=== PATIENT | female | born 1935 | race Caucasian/White ===

== ENCOUNTER 2017-08-04 19:56 | Emergency (ER) | payer MEDICARE, OTHER ==
[2017-08-04 20:05] VITALS: BP 109/67
[2017-08-04] MEDS ORDERED: Acetaminophen TAB* 325 MG PO ONE (20:40)
--- NOTE | 2017-08-04 21:10 | RAD ---
Indication: Fell and hit head. RIGHT supraorbital region. Small laceration. Denies loss of consciousness, dizziness, visual disturbance. Comparison: No relevant prior exams available [place] [facility] [place] for [place]. Technique: Noncontrast CT vertex of skull through foramen magnum. Report: Small RIGHT supraorbital forehead scalp hematoma measuring up to 0.4 cm AP by 2.0 cm transverse. No subcutaneous emphysema evident. Negative for calvarial or skull base fracture. Clear visualized paranasal sinuses and mastoid air spaces. Unremarkable orbital contents. Mild prominence of the cerebral sulci and cerebellar fissures. Negative for borja matter white matter obscuration, intra or extra-axial hemorrhage, or mass effect. IMPRESSION: 1. Small RIGHT frontal scalp hematoma. Negative for fracture or CT evidence for traumatic brain injury. 2. Mild involutional change. 3. No acute intracranial process evident.
--- NOTE | 2017-08-04 21:21 | UC ---
Valdez Wilkinson Thomas, scribed for Kenia Knott MD on 08/04/17 at 2044 . Upper Extremity HPI - HPI Summary HPI Summary: The pt is a 84 y/o F presenting to [facility] c/o right shoulder pain and right knee pain s/p a fall that occurred today at 18:30. She reports that she tripped over a ramp. After the fall, she called 911 and the officers wanted to take her to the ED, although she says that she preferred to go to [facility] because she had a dinner alliance party. No LOC. No neck or back pain. no blood HEENT. No cp, sob, abd pain. In shoulder, the pain is rated 8/10. The pain is aggravated by movement and alleviated by nothing. The patient has treated the pain with nothing. Pt reports achiness in right knee. States has arhtritis and feels the same. . She denies drinking before the fall, although she had 1 drink after the fall. Previously, she has fallen on the right shoulder and suffered a fracture that did not require surgery. Pt states pain feels similar. Pt with a bruise to right forehead and small laceration to forehead. Pt states Tdap UTD. She lives by herself. She is on ASA 81. PMHx: GERD. PSHx: partial hysterectomy. SHx: no smoking, occasional alcohol use, no illicit drug use, lives at home. She is right-handed. Patients medication reviewed this visit. - History of Current Complaint Chief Complaint: UCTrauma Stated Complaint: SHOULDER INJURY Time Seen by Provider: 08/04/17 20:27 Hx Obtained From: Patient Onset/Duration: Sudden Onset, Lasting Hours - today at 18:30, Still Present Severity Initially: Moderate Severity Currently: Moderate Pain Intensity: 8 Pain Scale Used: 0-10 Numeric Location Of Pain: Is Discrete @ - R shoulder, R knee Aggravating Factor(s): Movement Alleviating Factor(s): Rest Associated Signs And Symptoms: Positive: Bruising - R shoulder, Other - POS: laceration to forehead Related History: Similar Episode/Dx As - previous fall, where she fractured her right shoulder that did not require surgery, Dominant Hand Right - Allergies/Home Medications Allergies/Adverse Reactions: Allergies Allergy/AdvReac Type Severity Reaction Status Date / Time SUN Allergy Severe Rash Uncoded 08/04/17 20:05 PMH/Surg Hx/FS Hx/Imm Hx Previously Healthy: No Cardiovascular History: Other Other Cardiovascular History: NEG: OH GI/ History: Gastroesophageal Reflux - Surgical History Surgical History: Yes Surgery Procedure, Year, and Place: Partial hysterectomy - Family History Known Family History: Negative: Diabetes - Social History Occupation: Retired Lives: Alone Alcohol Use: Occasionally Substance Use Type: None Smoking Status (MU): Never Smoked Tobacco - Immunization History Most Recent Tetanus Shot: less then 10 yrs Review of Systems Constitutional: Negative Skin: Bruising - to R shoulder, Other - POS: laceration to forehead Eyes: Negative, Other - NEG: blood out of eyes, problems with vision ENT: Negative, Other - NEG: blood out of ears/nose Respiratory: Negative, Other - NEG: SOB Cardiovascular: Negative, Other - NEG: CP Gastrointestinal: Negative Genitourinary: Negative Motor: Negative Neurovascular: Negative Musculoskeletal: Other: - POS: R shoulder pain, R knee pain; NEG: neck pain, back pain Neurological: Negative, Other - NEG: LOC, PLUNKETT Psychological: Negative All Other Systems Reviewed And Are Negative: Yes Physical Exam Triage Information Reviewed: Yes Appearance: Well-Appearing, No Pain Distress, Well-Nourished Vital Signs: Initial Vital Signs Temp 98.5 F 08/04/17 19:59 Pulse 80 08/04/17 19:59 Resp 18 08/04/17 19:59 BP 109/67 08/04/17 19:59 Pulse Ox 98 08/04/17 19:59 Vital Signs Reviewed: Yes Eye Exam: Normal Eyes: Positive: Conjunctiva Clear ENT Exam: Normal ENT: Positive: Hearing grossly normal, Pharynx normal, TMs normal, Other: - no hemotymp b/l no septal hematoma b/l no blood oropharynx No broken teeth Pt with 2x3cm ecchymosis right frontal area with 0.5 oozing laceration no crepitus with palption of facial bone, TMJ Dental Exam: Normal Neck exam: Normal Neck: Positive: 1 Respiratory Exam: Normal Respiratory: Positive: Chest non-tender, Lungs clear, Normal breath sounds, No respiratory distress, No accessory muscle use Cardiovascular Exam: Normal Cardiovascular: Positive: RRR, No Murmur, Pulses Normal Abdominal Exam: Normal Abdomen Description: Positive: Nontender, No Organomegaly, Soft Bowel Sounds: Positive: Present Musculoskeletal: Positive: Other: - no pain c/t/l/s Full AROM c spine without difficulty + flex/ext elbow, wrist +pronate/upinate pt with pain proximal humerus Pain increased with abduction No pain clavicle B/l LE: + sle + flex/ ext knee, ankle + great toe extension Neurological Exam: Normal Psychological Exam: Normal Psychological: Positive: Normal Response To Family, Age Appropriate Behavior Skin: Positive: Other - ecchymosis right frontal area small abrasion right knee Diagnostics - Laboratory Diagnostic Studies Completed/Ordered: xray humerus:greater tuberosity avulsion fx. knee: arthritis, no fx - Radiology XR Humerus Radiology Interpretation Completed By: Radiologist - Results pending, see [facility] XR Knee Radiology Interpretation Completed By: ED Physician - arthritis XR Shoulder Radiology Interpretation Completed By: ED Physician - avulsion fx prox humerus CT Brain Xray Interpretation: No Acute Changes - CT Brain reveals 1. Small RIGHT frontal scalp hematoma. Negative for fracture or CT evidence for traumatic brain injury. 2. Mild involutional change. 3. No acute intracranial process evident. [facility] Physician has reviewed this report and agrees. Radiology Interpretation Completed By: Radiologist CT C-Spine Xray Interpretation: No Acute Changes - CT C-Spine reveals no CT evidence for traumatic cervical spine injury. [facility] Physician has reviewed this report and agrees. Radiology Interpretation Completed By: Radiologist Re-Evaluation - Re-Evaluation First Eval Comment: reviewed imaging with pt. Placed in arm sling - ortho referral. declined brayan wrap. APAP. pcp f/u. pt discharged with friends Upper Extremity Course/Dx - Course Course Of Treatment: The patient is a 81 y/o F who presents to [facility] c/o R shoulder and R knee pain s/p a fall today at 18:30. She also c/o ecchymosis and a laceration to her forehead. . She denies LOC, PLUNKETT, problems with vision, neck pain, back pain, SOB, and blood out of eyes/nose/ears. Pt declined analgesia. will give ice. CT head, c spine. shoulder and knee xray. reassess - Differential Dx/Diagnosis Provider Diagnoses: facial contusion. facial laceration. humerus fx. fall Discharge - Discharge Plan Condition: Stable Disposition: HOME Patient Education Materials: Laceration (ED), Hematoma (ED), Proximal Humerus Fracture (ED) Referrals: Joseluis Reno MD [Medical Doctor] - Lencho Ash MD [Primary Care Provider] - Additional Instructions: - Wear arm sling for comfort. Take your arm out of sling 2-3 times a day and gently bend, straighten your elbow and your wrist - apply ice, 20 minutes at a time, 2-3 times a day- ice should be wrapped in a towel - okay to take tylenol every 6 hours for pain - contact Dr. Reno, cyber systems operations specialist to schedule a follow-up appointment - contact your doctor to schedule a follow-up appointment call your doctor or return with questions or concerns The documentation as recorded by the Valdez guerra Thomas accurately reflects the service I personally performed and the decisions made by me, Kenia Knott MD.
--- NOTE | 2017-08-04 21:35 | RAD ---
INDICATION: Fell and hit head. COMPARISON: No relevant prior exams available on the [facility] PACS for comparison. TECHNIQUE: Multidetector CT images foramen magnum to lung apices without contrast. Multiplanar reformation. REPORT: 2 mm degenerative C3-C4, C4-C5, and C5-C6 anterolisthesis. Negative for facet subluxation at any level. Negative for cervical vertebral body or posterior element fracture. Negative for paravertebral hematoma. 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 Disc space narrowing is moderately severe at C5-C6 and severe at C6-C7. 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 At C4-C5 and C5-C6 uncinate process spurring and facet joint osteoarthritis results in moderate bilateral foraminal stenosis. IMPRESSION: No CT evidence for traumatic cervical spine injury.
--- NOTE | 2017-08-04 21:51 | RAD ---
Indication: RIGHT shoulder pain post fall. Comparison: January 01, 2015 Technique: Internal rotation AP, external rotation Grashey, scapular Y, axillary views RIGHT shoulder Report: Normal acromioclavicular and glenohumeral joint alignment. Bone density appears decreased throughout. Avulsion fracture of the greater tuberosity with up to 0.7 cm cephalad displacement. No additional fracture evident. AC joint osteoarthritis. Unremarkable soft tissue contours. IMPRESSION: Avulsion fracture of the greater tuberosity of the humerus. Predisposing decreased bone density.
--- NOTE | 2017-08-04 21:55 | RAD ---
Indication: Chronic RIGHT knee pain with arthritis. Fall. Comparison: No relevant prior exams available [place] [facility] [place]. Technique: AP, tunnel, lateral, sunrise views RIGHT knee. Report: Osteophytosis. Moderately severe medial and lateral joint space narrowing reference the tunnel view. Partial flattening of the articular surfaces. Trace fluid at the suprapatellar joint recess. Negative for fracture. Bone density appears decreased throughout. Calcification posterior to the knee may represent a loose body within a popliteal cyst or potentially a vascular calcification. Unremarkable soft tissue contours. IMPRESSION: 1. Negative for fracture. 2. Kellgren and Devante grade 3 osteoarthritis.
== END 2017-08-04 21:45 | disposition home or self-care (01) ==
LOC: UCEAST 19:56
DX: S42.251A Displaced fracture of greater tuberosity of right humerus, initial encounter for closed fracture (principal); S00.83XA Contusion of other part of head, initial encounter; S01.81XA Laceration without foreign body of other part of head, initial encounter; W18.09XA Striking against other object with subsequent fall, initial encounter; Y92.9 Unspecified place or not applicable; K21.9 Gastro-esophageal reflux disease without esophagitis; Z79.82 Long term (current) use of aspirin
CPT/HCPCS: 70450; 72125; 99213; A9270-GY; G0463

== ENCOUNTER 2019-11-12 16:19 | Emergency (ER) | payer MEDICARE, OTHER ==
--- OUTSIDE RECORDS SUMMARY | 2019-11-12 16:25 | XMS REPORT | Summary of Care ---
:1935 Author Organization [facility] Address [address] [facility] [place] [address] Care Team Providers Name Role Phone NilsaArmenmao Armando Primary Care Provider Reason for Visit Reason Comments Medication Check Annual medication check. Encounter Details Date Type Department Care Team Description 10/17/2019 Office Visit [place] [facility] Lencho Ash Dry mouth (Primary Dx); Medicine MD Tr Adverse effect of drug, initial encounter; [address] [place] [address] Gastroesophageal reflux disease, esophagitis presence not specified; [place], [place] [id number] [place] [address] Polypharmacy; [phone] Essential hypertension; [phone] Age-related osteoporosis without current pathological fracture; (Fax) Vision changes; Primary osteoarthritis of both knees; Neuropathy Allergies Active Allergy Reactions Severity Noted Date Comments Lisinopril Other 04/24/2009 Cough documented as of this encounter (statuses as of 10/17/2019) Medications Medication Sig Dispensed Refills Start Date End Date Status CALCIUM 500 + D 1 Tab by 0 Active 500-125 MG-UNIT Mouth/Throat PO TABS route *DAILY. MULTIPLE VITAMIN 1 Cap by 0 Active PO CAPS Mouth/Throat route *DAILY. GLUCOSAMINE-CHOND *DAILY. 0 Active ROITIN (GLUCOSAMINE CHONDRO COMPLEX) 500-400 MG PO TABS VITAMIN D PO Take 1 Tab by 0 Active mouth DAILY. FIBER PO Take by 0 Active mouth. MELATONIN PO Take by 0 Active mouth. Docusate Sodium Take by 0 Active (STOOL SOFTENER mouth. PO) gabapentin Take 1-2 Caps 90 Cap 2 10/17/2019 Active (NEURONTIN) 300 by mouth MG Oral Cap EVERY BEDTIME. Omeprazole 40 MG Take 1 Cap by 90 Cap 4 10/17/2019 Active Oral CAPSULE mouth DAILY. DELAYED RELEASE aspirin (SB LOW Take 81 mg by 0 Discontinued DOSE ASA EC) 81 mouth DAILY. 9 mg PO TBECIndications: Osteoarthrosis, unspecified whether generalized or localized, other specified sites [place]-3 Fatty Take by 0 Discontinued Acids (FISH OIL) mouth DAILY. 9 (Provider 1000 MG Oral Cap Discontinued) MAGNESIUM Take by 0 Discontinued ASPARTATE PO mouth. 9 (Provider Discontinued) B Complex Take by 0 Discontinued Vitamins (VITAMIN mouth. 9 B COMPLEX PO) Probiotic Product Take by 0 Discontinued (PROBIOTIC DAILY mouth. 9 (Provider PO) Discontinued) Omeprazole 40 MG TAKE 1 30 Cap 0 09/26/2019 Discontinued Oral CAPSULE CAPSULE BY 9 (Reorder) DELAYED RELEASE MOUTH ONCE DAILY documented as of this encounter (statuses as of 10/17/2019) Active Problems Problem Noted Date Primary osteoarthritis of both knees 08/26/2017 Age-related osteoporosis without current pathological fracture 07/26/2007 Knee osteoarthritis 07/26/2007 Overview: Knee - left Nonallergic rhinitis 07/26/2007 Essential hypertension 07/26/2007 Overview: White coat element. Home blood pressure readings 140-150 range 2008. Dermatitis, contact, photosensitive 07/26/2007 Combined forms of age-related cataract, both eyes Myopia, both eyes COAG (chronic open angle glaucoma) suspect, low risk, both eyes Overview: Risk Factors: Disc appearance: abnormal (symmetric) Race: MAX IOP without treatment: OD 16 OS 18 FH: negative Corneal thickness: average 11/10/10 OD: 552 (-1) OS: 556 (-1) 04/21/16 OD: 553 (-1) OS: 563 (-1) 09/29/16 OD: 546 (0) OS: 554 (-1) Notes: DPT: 09/29/16 DD: OD mm OS mm 09/29/16 First Exam with SH: 11/10/[address] Jatin Giraldo exam of 11/10/10: no evidence of, or risk factors for, glaucoma; per Dr. Cifuentes exam of 09/14/15, questionable change in disc OD Mild myopia (-3) OU documented as of this encounter (statuses as of 10/17/2019) Resolved Problems Problem Noted Date Resolved Date Mixed hyperlipidemia 12/05/2014 10/17/2019 BMI 34.0-34.9,adult 05/21/2011 10/17/2019 Obesity, unspecified 07/26/2007 10/17/2019 Hyperlipidemia 07/26/2007 03/15/2018 documented as of this encounter (statuses as of 10/17/2019) Immunizations Name Administration Dates Next Due Hepatitis A Vaccine-Adult 09/19/2007, 07/26/2007 Hepatitis B Vaccine Adult 02/08/2008, 09/19/2007, 08/02/2007 PNEUMOCOCCAL POLYSACCHARIDE VACCINE 02/16/2006 Pneumococcal Conjugate(13 Valent) 12/05/2014 TETANUS & DIPHTHERIA TOXOID (OVER 7 YRS) 07/26/2007 ZOSTER (ZOSTAVAX) VACCINE 12/12/2014 documented as of this encounter Social History Tobacco Use Types Packs/Day Years Used Date Never Smoker Smokeless Tobacco: Never Used Alcohol Use Drinks/Week oz/Week Comments Yes rare Sex Assigned at Date Recorded Not on file Job Start Date Occupation Industry Not on file Not on file Not on file Travel History Travel Start Travel End No recent travel history available. documented as of this encounter Last Filed Vital Signs Vital Sign Reading Time Taken Comments Blood Pressure 138/86 10/17/2019 4:50 PM EST Pulse - - Temperature - - Respiratory Rate - - Oxygen Saturation - - Inhaled Oxygen Concentration - - Weight 70.3 kg (155 lb) 10/17/2019 4:38 PM EST Height 165.1 cm (5' 5") 10/17/2019 4:38 PM EST Body Mass Index 25.79 10/17/2019 4:38 PM EST documented in this encounter Patient Instructions Patient InstructionsLencho Ash MD - 10/17/2019 4:40 PM ESTOk to stop Bee cap Ok to stop omega three fish oil and osteobiflex Stop vitamin C Continue multivitamin calcium and vitamin D Continue omeprazole Blood pressure is fine colrite continue Probiotic ok to stop for now Trial gabapentin 1-2 at bedtime for neuropathy See eye MD for the vision changes Omeprazole refill Bone density scan and bilateral Knee xray in winter 2018 or 2019 documented in this encounter Progress Notes Lencho Ash MD - 10/17/2019 4:40 PM EST PATIENT: Mallory Webb : 1935 DATE OF SERVICE: 10/17/2019 CHIEF COMPLAINT: Chief Complaint Patient presents with Medication Check Annual medication check. Subjective HISTORY OF PRESENT ILLNESS: Mallory Webb is a 83-y.o. female. HPI Follow up to multiple issues She has mintained weight loss and blood pressure out of office is 120-130/70 range no cardiovascularsymptoms She notes dry mouth and thinks it may be due to one of many over the counter vitamins she uses We reviewed all of her vitamins and herbal medications and I advised she stop many of them She denies dry eyes She notes bilateral Sparkly vision changes comes and goes no other neuro or headache symptoms She asks to get bone density scan and knee xrays she has osteoarthritis and osteoporosis she uses calcium and vitamin D daily She has neuropathy Symptoms bilateral Feet for years now cannot sleep due to the night time symptoms Patient Active Problem List Diagnosis Age-related osteoporosis without current pathological fracture Knee osteoarthritis Nonallergic rhinitis Essential hypertension Dermatitis, contact, 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, both eyes Myopia, both eyes COAG (chronic open angle glaucoma) suspect, low risk, both eyes Primary osteoarthritis of both knees Family History Problem Relation Age of Onset Cancer Father Lung/ Cancer Mother Breast/ No Known Problems Sister No Known Problems Brother No Known Problems Maternal Aunt No Known Problems Maternal Uncle No Known Problems Paternal Aunt No Known Problems Paternal Uncle No Known Problems Maternal Grandmother No Known Problems Maternal Grandfather No Known Problems Paternal Grandmother No Known Problems Paternal Grandfather Glaucoma No family history Patient thinks one aunt "May have had" Macular Degeneration No family history Blindness No family history Other Eye Problems No family history Current Outpatient Medications Medication Sig CALCIUM 500 + D 500-125 MG-UNIT PO TABS 1 Tab by Mouth/Throat route * DAILY. Docusate Sodium (STOOL SOFTENER PO) Take by mouth. FIBER PO Take by mouth. gabapentin (NEURONTIN) 300 MG Oral Cap Take 1-2 Caps by mouth EVERY BEDTIME. GLUCOSAMINE-CHONDROITIN (GLUCOSAMINE CHONDRO COMPLEX) 500-400 MG PO TABS *DAILY. MELATONIN PO Take by mouth. MULTIPLE VITAMIN PO CAPS 1 Cap by Mouth/Throat route *DAILY. Omeprazole 40 MG Oral CAPSULE DELAYED RELEASE Take 1 Cap by mouth DAILY. VITAMIN D PO Take 1 Tab by mouth DAILY. No current facility-administered medications for this visit. Allergies Allergen Reactions Lisinopril Other Cough Social History Socioeconomic History Marital status: Spouse name: Not on file Number of children: Not on file Years of education: Not on file Highest education level: Not on file Occupational History Not on file Social Needs Financial resource strain: Not on file Food insecurity: Worry: Not on file Inability: Not on file Transportation needs: Medical: Not on file Non-medical: Not on file Tobacco Use Smoking status: Never Smoker Smokeless tobacco: Never Used Substance and Sexual Activity Alcohol use: Yes Comment: rare Drug use: No Sexual activity: Never Lifestyle Physical activity: Days per week: Not on file Minutes per session: Not on file Stress: Not on file Relationships Social connections: Talks on phone: Not on file Gets together: Not on file Attends voodoo service: Not on file Active member of club or organization: Not on file Attends meetings of clubs or organizations: Not on file Relationship status: Not on file Intimate partner violence: Fear of current or ex partner: Not on file Emotionally abused: Not on file Physically abused: Not on file Forced sexual activity: Not on file Other Topics Concern Back Care Not Asked Bike Helmet Not Asked Blood Transfusions Not Asked Caffeine Concern No Exercise No Hobby Hazards Not Asked International Travel Not Asked Service Not Asked Occupational Exposure Not Asked Seat Belt Not Asked Self-Exams Not Asked Sleep Concern Not Asked Special Diet No Stress Concern Not Asked Weight Concern Not Asked Social History Narrative [facility] in [facility] . Over the last 2 weeks, have you been feeling down, depressed, anxious, or hopeless?: 3 Over the past 2 weeks, have you felt little interest or pleasure in doing things ?: 0 Trouble falling or staying asleep, or sleeping too much?: 2 Feeling tired or having little energy?: 2 Poor appetite or overeating?: 0 Feeling bad about yourself or that you are a failure or have let yourself or your family down?: 2 Trouble concentrating on things, such as reading the newspaper or watching TV?: 0 Moving or speaking so slowly that other people notice OR being fidgety and restless?: 0 Thoughts that you would be better off or of hurting yourself in some way?: 0 PHQ-9 TOTAL SCORE: 9 How difficult have these problems made it for you to do your work, take care of things at home or get along with people?: Somewhat difficult In the past 2 years, have you felt depressed or sad most days, even if you felt ok?: No ROS no new gastro-intestinal symptoms No skin rash Objective PHYSICAL EXAM: VITALS: BP 138/86 | Ht 5' 5" (1.651 m) | Wt 155 lb (70.3 kg) | BMI 25.79 kg/ m Body mass index is 25.79 kg/m. Physical Exam Throat exam normal. Oral cavity, tongue, pharynx and palate have no inflammation or suspicious lesions. Teeth normal without tenderness Sensory exam of the foot is normal, tested with the monofilament. Good pulses, no lesions or ulcers,good peripheral pulses. S1 and S2 normal, no murmurs, clicks, gallops or rubs. Regular rate and rhythm. Chest is clear; no wheezes or rales. No edema or JVD. ASSESSMENT / IMPRESSION: ICD-9-CM ICD-10-CM 1. Dry mouth 527.7 R68.2 2. Adverse effect of drug, initial encounter dry mouth due to polypharmacy stop many of these medications see below E947.9 T50.905A 3. Gastroesophageal reflux disease, esophagitis presence not specified omeprazole refill 530.81 K21.9 4. Polypharmacy see below V58.69 Z79.899 5. Essential hypertension at goal no medications continue to monitor 401.9 I10 6. Age-related osteoporosis without current pathological fracture 733.01 M81.0 XR DEXA SCAN 1 OR MORE SITES 7. Vision changes 368.9 H53.9 8. Primary osteoarthritis of both knees xray knees 715.16 M17.0 XR KNEE 4 OR MORE VIEWS BILATERAL (STANDARD) 9. Neuropathy check b12 tsh cmp and trial gabapentin 355.9 G62.9 Patient Instructions Ok to stop Bee cap Ok to stop omega three fish oil and osteobiflex Stop vitamin C Continue multivitamin calcium and vitamin D Continue omeprazole Blood pressure is fine colrite continue Probiotic ok to stop for now Trial gabapentin 1-2 at bedtime for neuropathy See eye MD for the vision changes Omeprazole refill Bone density scan and bilateral Knee xray in winter 2018 or 2019 Lencho Ash MD 10/17/2019 17:01 documented in this encounter Plan of Treatment Date Type Specialty Care Team Description 11/16/2019 IPPR Ophthalmology 11/16/2019 Ocular Visit Optometry Rufino Loya, OD [address] [place] [address] [phone] 12/01/2019 Ancillary Procedure Radiology 12/01/2019 Ancillary Procedure Radiology 05/20/2020 IPPR Ophthalmology 05/20/2020 IPPR Ophthalmology 05/20/2020 Ocular Visit Ophthalmology David Giraldo MD [address] [place] [address] [phone] Name Type Priority Associated Diagnoses Order Schedule XR DEXA SCAN 1 OR MORE Imaging Routine Age-related osteoporosis 1 Occurrences SITES without current starting 10/17/2019 pathological fracture until 10/16/2020 XR KNEE 4 OR MORE VIEWS Imaging Routine Primary osteoarthritis Expected: , BILATERAL (STANDARD) of both knees Expires: 10/16/2020 VITAMIN B12 / FOLATE Lab Routine Neuropathy Expected: 10/17/2019 (Approximate), Expires: 04/14/2020 COMPREHENSIVE METABOLIC Lab Routine Age-related osteoporosis Expected: PANEL without current (Approximate), pathological fracture Expires: 04/14/2020 THYROID STIMULATING Lab Routine Age-related osteoporosis Expected: 2018 HORMONE without current (Approximate), pathological fracture Expires: 04/14/2020 Health Maintenance Due Date Last Done Comments HIV SCREENING 1950 FALL RISK ASSESSMENT 2001 ZOSTER IMMUNIZATION SERIES (2 02/06/2015 12/12/2014 of 3) MEDICARE ANNUAL WELLNESS VISIT 09/10/2017 09/10/2016, 09/10/2016 DEPRESSION SCREENING 10/17/2020 10/17/2019, 10/17/2019 PNEUMOCOCCAL 65+YRS Completed 12/05/2014, 02/16/2006 HPV IMMUNIZATION SERIES Aged Out No longer eligible based on patient's age to complete this topic MENINGOCOCCAL VACCINE IMM Aged Out No longer eligible based on patient's age to complete this topic documented as of this encounter Goals Goal Patient Goal Associated Recent Patient-Stated? Author Type Problems Progress Blood Pressure Blood Pressure 138/86 No Nilsa, < 140/90 (10/17/2019 Lencho Armando, 4:50 PM EST) MD Note: Hypertension Care Plan Based on the patient's clinical history and according to JNC 8 guidelines target blood pressure goal is less than 140/90. Based on the patient's last blood pressure of BP: 112/68 mmHg the patient is at at goal. As your provider, it is important that I advise you regarding: your current medications and help you with any challenges you may face taking your medications as directed (ex. instructions, cost, side effects, and interactions). lifestyle changes: exercise, weight reduction, diet and medication compliance your clinical goals and how you can achieve success: weight reduction and exercise plan medication management: N/A diet only patient education/self-management tools provided: No To successfully manage my Hypertension I will: monitor my blood pressure daily, understanding that my goal is less than 140/ 90 per my healthcare provider's recommendation. I will schedule an appointment with my provider if consistent abnormal readings greater than 160/100. take medications every day as prescribed by my healthcare provider and if unable to take them I will discuss with my provider. monitor for symptoms of chest pain, chest tightness/pressure, irregular heartbeat, persistent dizziness, radiating arm pain, and neck or jaw pain. If any of these symptoms are noticed I will seek medical attention immediately by calling 911 exercise/walk 30 minutes 7 day(s) per week. If I experience chest pain, chest tightness, or shortness of breath, I will seek medical attention immediately. follow a diet rich in fruits, vegetables, and low-fat dairy products with reduced content of saturated & total fat. I will reduce my sodium intake daily. An example is the DASH diet. To obtain more information please refer to the DASH Eating Plan listed in Educational Resources. record my blood pressure results. Uri is safe and secure way for you to do this in your medical record online. try to obtain an ideal body weight. My recent weight was Weight: 181 lb ( 82.101 kg). My weight loss goal for my next office visit is 170 lb . limit alcohol consumption. For men two drinks per day and women one drink per day. if currently smoking, will discuss how to quit smoking with my healthcare provider and work towards quitting. Educational Resources: National Heart, Lung, & Blood [place] http://nhlbi.nih.gov/hbp/index.html The DASH Diet Eating Plan http://www.nhlbi.nih.gov/health/health-topics/ topics/dash/ Academy of Nutrition & DIetetics http://eatright.org National Smoking Cessation Site http://smokefree.gov Blood Pressure < Blood Pressure 138/86 (10/17/2019 4:50 Lecnho Montemayor, 150/90 PM EST) Note: This is an individualized treatment (blood pressure) goal for Mallory Abeln: Displayed above (on the left) is your goal for blood pressure control. Your most recent blood pressure is also shown above, on the right. You should try to achieve blood pressures that are lower than your goal listed above (on the left). Weight loss vs. 18 mo Lifestyle 0 (10/17/2019 4:38 PM Lencho Montemayor MD max (lbs) >= 10 EST) Note: This is an individualized lifestyle goal for Mallory Abeln: Your body mass index (BMI) is more than 30. You should lose weight. A reasonable starting goal is to lose 10 pounds. Displayed above is how many pounds you have lost thus far towards your 10 pound weight loss goal. Take all prescribed medications as Self-management Lencho Montemayor MD directed Note: This is an individualized self-management goal for Mallory Maren Webb: Please take all prescribed medications as directed. 1. Do not skip doses. If you cannot afford your medications, talk with your doctor. 2. Use a pill reminder system such as a pill box if needed. Your pharmacist can help you with this. 3. Contact your Pharmacy 5 days before your medication runs out. If you cannot take your medications for any reasons, talk with your doctor. 4. Please bring all of your medication bottles and inhalers (or a list of all your medications/inhalers) with you to every visit. Potential barriers to meeting all of your care plan goals will continue to be addressed on an ongoing basis. documented as of this encounter Results Not on filedocumented in this encounter Visit Diagnoses Diagnosis Dry mouth - Primary Disturbance of salivary secretion Adverse effect of drug, initial encounter Gastroesophageal reflux disease, esophagitis presence not specified Polypharmacy Issue of repeat prescriptions Essential hypertension Unspecified essential hypertension Age-related osteoporosis without current pathological fracture Senile osteoporosis Vision changes Unspecified visual disturbance Primary osteoarthritis of both knees Primary localized osteoarthrosis, lower leg Neuropathy Mononeuritis of unspecified site documented in this encounter Insurance Payer Benefit Plan / Subscriber ID Effective Dates Phone Address Type Group [employer]CIAL [employer] xxxxxxxxxx 2011-Present [employer] Guarantor Name Account Type Relation to Date of Phone Billing Address Patient Mallory Webb Personal/Family [id number] [phone] [place], [place] (Work) [id number] documented as of this encounter
[2019-11-12 16:29] VITALS: BP 151/71
--- NOTE | 2019-11-12 16:31 | UC ---
Lower Extremity/Ankle HPI - HPI Summary HPI Summary: Patient is an 83yo female presenting with R great toe pain x2 days. Patient notes redness and swelling that has gradually spread to the adjacent toes and over the foot. States pain is worse with weight bearing and ambulating. Denies any trauma or injury to the toe. Denies any drainage or bleeding. Denies fever and chills. Denies n/v. Denies anything like this in the past. Notes neuropathy in both feet, but denies diabetes. Denies h/o gout and other adult illnesses. - History of Current Complaint Chief Complaint: UCLowerExtremity Stated Complaint: FOOT PAIN Hx Obtained From: Patient Onset/Duration: Gradual Onset, Lasting Days Severity Currently: Moderate Pain Intensity: 5 Pain Scale Used: 0-10 Numeric - Allergies/Home Medications Allergies/Adverse Reactions: Allergies Allergy/AdvReac Type Severity Reaction Status Date / Time SUN Allergy Severe Rash Uncoded 11/12/19 16:29 PMH/Surg Hx/FS Hx/Imm Hx GI/ History: Gastroesophageal Reflux - Surgical History Surgical History: Yes Surgery Procedure, Year, and Place: Partial hysterectomy. shoulder fx 6 weeks ago - Family History Known Family History: Negative: Diabetes - Social History Lives: With Family Alcohol Use: Occasionally Substance Use Type: None Smoking Status (MU): Never Smoked Tobacco - Immunization History Most Recent Influenza Vaccination: none Most Recent Tetanus Shot: less then 10 yrs Review of Systems All Other Systems Reviewed And Are Negative: Yes Constitutional: Positive: Negative. Negative: Fever, Chills Skin: Positive: Other - redness, swelling of R great toe Respiratory: Positive: Negative Cardiovascular: Positive: Negative Gastrointestinal: Positive: Negative. Negative: Vomiting, Nausea Musculoskeletal: Positive: Arthralgia - R great toe, Decreased ROM - toes of R foot, Edema - R great toe Neurological: Positive: Numbness - in both feet d/t neuropathy. Negative: Paresthesia Physical Exam Triage Information Reviewed: Yes Appearance: Well-Appearing, No Pain Distress, Well-Nourished Vital Signs: Initial Vital Signs Temp 98.2 F 11/12/19 16:24 Pulse 97 11/12/19 16:24 Resp 18 11/12/19 16:24 BP 151/71 11/12/19 16:24 Pulse Ox 98 11/12/19 16:24 Vital Signs Reviewed: Yes Eyes: Positive: Conjunctiva Clear ENT: Positive: Hearing grossly normal Neck: Positive: Supple Respiratory Exam: Normal Respiratory: Positive: Lungs clear, Normal breath sounds, No respiratory distress Cardiovascular Exam: Normal Cardiovascular: Positive: RRR, Pulses Normal - strong pedal pulses b/l, Brisk Capillary Refill - <2 sec Musculoskeletal: Positive: Strength Intact, ROM Limited @ - R great toe flexion d/t pain, Edema @ - distal R great toe Neurological: Positive: Alert Psychological: Positive: Age Appropriate Behavior Skin: Positive: Other - erythema and warmth noted of R great toe with erythema and red streaking extending proximally over dorsal foot and into adjacent toes. no fluctuance. no drainage or bleeding. no obvious deformity or break in skin Diagnostics - Radiology R great toe Radiology Interpretation Completed By: Radiologist Summary of Radiographic Findings: SOFT TISSUES: There is a linear, 0.4 cm radiopaque foreign body within the soft tissues along the medial-plantar surface of the distal phalanx of the first digit. OTHER FINDINGS: None. IMPRESSION: 1. LINEAR RADIOPAQUE FOREIGN BODY WITHIN THE SOFT TISSUES ALONG THE DISTAL PHALANX OF THE FIRST DIGIT. 2. OSTEOPENIA. 3. OSTEOARTHRITIS Lower Extremity Course/Dx - Course Course Of Treatment: Patient presenting with R great toe pain, redness, swelling gradually worsening over 2 days without known trauma or injury. Radiographs revealed 0.4cm radiopaque object in the soft tissue of the R great toe. No obvious tract for removal or abscess noted on exam, so patient was referred to surgery for further management. Instructed to follow up as soon as possible with surgery. Patient's cellulitis treated here with IM rocephin and dose of Bactrim. Patient received second dose to take home as well, since pharmacy closed. 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 Instructed to continue with symptomatic treatment including warm soaks and otc analgesics for pain relief. Educated on s/s of worsening cellulitis and instructed to go to ED if any occur. Patient voiced understanding and agreed with treatment plan. - Differential Dx/Diagnosis Differential Diagnosis/HQI/PQRI: Cellulitis, Foreign Body, Infection, Puncture Wound, Septic Arthritis Provider Diagnosis: Foreign body of great toe of right foot with infection, Cellulitis Discharge ED - Sign-Out/Discharge Documenting (check all that apply): Patient Departure All imaging exams completed and their final reports reviewed: Yes - Discharge Plan Condition: Stable Disposition: HOME Prescriptions: Sulfamethox/Trimethoprim DS* [Bactrim DS 800/160 TAB*] 1 tab PO BID #12 tab Patient Education Materials: Soft Tissue Foreign Body (ED), Cellulitis (ED) Referrals: Delvin Douglas MD [Medical Doctor] - As Soon As Possible Additional Instructions: As discussed, there is a foreign body in your big toe that was found on xray. This is likely the cause of your infection and will need follow up with surgery as soon as possible for further evaluation and management. Take Bactrim as prescribed for the treatment of your skin infection. You received the first dose here and the second dose was sent home with you to take 12 hours after initial dose. The remainder of the prescription has been sent to your pharmacy for you to sweet pickled fruit maker. Apply warm soaks or compresses 2-3 times daily to help relieve symptoms. Call the number listed below for follow up with surgery as soon as possible. Go to the emergency room if you experience fever, increasing redness and warmth to the area, drainage, or nausea and vomiting. - Billing Disposition and Condition Condition: STABLE Disposition: Home - Attestation Statements Provider Attestation: This patient was not seen by me I was available for consult Chart reviewed NIGEL
[2019-11-12] MEDS ORDERED: Lidocaine 1% MPF ** 5 ML VIAL IM ONE (16:45)
[2019-11-12] MEDS ORDERED: cefTRIAXone VIAL(*) 1,000 MG VIAL IM ONE (16:45)
[2019-11-12] MEDS ORDERED: Sulfamethox/Trimethoprim DS 800/160* TAB PO ONE (17:15)
== END 2019-11-12 17:29 | disposition home or self-care (01) ==
LOC: UCEAST 16:19
DX: L03.031 Cellulitis of right toe (principal); S90.451A Superficial foreign body, right great toe, initial encounter; L08.9 Local infection of the skin and subcutaneous tissue, unspecified; X58.XXXA Exposure to other specified factors, initial encounter; Y92.9 Unspecified place or not applicable; Z91.09 Other allergy status, other than to drugs and biological substances
CPT/HCPCS: 99212; A9270-GY; G0463; J0696

== ENCOUNTER 2019-11-18 15:43 | Emergency (ER) | payer MEDICARE, OTHER ==
--- OUTSIDE RECORDS SUMMARY | 2019-11-18 15:49 | XMS REPORT | Continuity of Care Document ---
:1935 External Reference #:[id number] Author Name Perry Tay M.D. 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 Medicine Problems Active Problems Provider Date Localized, primary osteoarthritis Alek Betancourt MD Onset: 09/09/2017 Closed fracture proximal humerus, greater Alek Betancourt MD Onset: 08/17/2017 tuberosity Social History Type Date Description Comments Sex Unknown ETOH Use Occasionally consumes alcohol Tobacco Use Start: Unknown Patient has never smoked Smoking Status Reviewed: 11/14/19 Patient has never smoked Exercise Type/Frequency Does not exercise Allergies, Adverse Reactions, Alerts Description No Known Drug Allergies Medications Active Medications SIG Qnty Indications Ordering Provider Date Omeprazole Unknown 40mg Capsules Sulfamethoxazole/Trimetho TK 1 T PO bid Unknown prim DS 800-160mg Tablets Immunizations Description No Information Available Vital Signs Date Vital Result Comment 11/14/2019 9:54am Height 65 inches 5'5" Weight 150.00 lb Heart Rate 95 /min BP Systolic 124 mmHg BP Diastolic 82 mmHg Respiratory Rate 18 /min Body Temperature 97.7 F Pain Level 5 BMI (Body Mass Index) 25.0 kg/m2 09/09/2017 1:44pm Height 65 inches 5'5" Weight 175.00 lb BP Systolic 118 mmHg BP Diastolic 72 mmHg Respiratory Rate 18 /min Pain Level 4 BMI (Body Mass Index) 29.1 kg/m2 Results Description No Information Available Procedures Date Code Description Status 11/14/2019 46468 Debridement Skin,& sq Tissue Completed Medical Devices Description No Information Available Encounters Type Date Location Provider Dx Diagnosis Office Visit 11/14/2019 [facility] Perry Tay, S90.851A Superficial 9:30a at [place] foreign body, right foot, initial encounter Assessments Date Code Description Provider 11/14/2019 S90.851A Superficial foreign body, right foot, Perry Tay M.D. initial encounter Plan of Treatment Future Appointment(s):11/24/2019 2:15 pm - Ad Irvin PA-C at [facility] [place]/14/2019 - Perry Tay M.D.S90.851A Superficial foreign body, right foot, initial encounterFollow up:1 week Functional Status Description No Information Available Mental Status Description No Information Available Referrals Description No Information Available
[2019-11-18 15:57] VITALS: BP 144/87
--- NOTE | 2019-11-18 16:18 | UC ---
Skin Complaint HPI - HPI Summary HPI Summary: was treated for infected R toe and treated with 5 days Bactrim DS. toe has gotten less swollen, no streaking but distal toe still red. Patient concerned that she needs more antibiotic (today is last dose of current Rx) - History of Current Complaint Chief Complaint: UCLowerExtremity Time Seen by Provider: 11/18/19 16:06 Stated Complaint: TOE ISSUE Hx Obtained From: Patient Onset/Duration: Gradual Onset Current Severity: Mild Pain Intensity: 2 Location: Foot (Right) Character: Redness, Painful - mild pain if pressure applied Aggravating Factor(s): Nothing Alleviating Factor(s): Nothing Associated Signs & Symptoms: Positive: Tenderness. Negative: Drainage, Red Streaks - Allergy/Home Medications Allergies/Adverse Reactions: Allergies Allergy/AdvReac Type Severity Reaction Status Date / Time SUN Allergy Severe Rash Uncoded 11/18/19 15:57 Home Medications: Home Medications Sulfamethox/Trimethoprim DS* [Bactrim DS 800/160 TAB*] 1 tab PO BID 11/18/19 [ History Confirmed 11/18/19] PMH/Surg Hx/FS Hx/Imm Hx Previously Healthy: Yes - Surgical History Surgical History: Yes Surgery Procedure, Year, and Place: Partial hysterectomy. shoulder fx 6 weeks ago - Family History Known Family History: Negative: Diabetes - Social History Occupation: Retired Lives: With Family Alcohol Use: Occasionally Substance Use Type: None Smoking Status (MU): Never Smoked Tobacco - Immunization History Most Recent Influenza Vaccination: none Most Recent Tetanus Shot: less then 10 yrs Review of Systems All Other Systems Reviewed And Are Negative: Yes Constitutional: Positive: Negative Skin: Positive: Other - R great toe redness Respiratory: Positive: Negative Cardiovascular: Positive: Negative Musculoskeletal: Positive: Other: - redness R great toe. Negative: Decreased ROM, Edema Neurological: Positive: Negative Psychological: Positive: Negative Is Patient Immunocompromised?: No Physical Exam Triage Information Reviewed: Yes Appearance: Well-Appearing, No Pain Distress, Well-Nourished Vital Signs: Initial Vital Signs Temp 98.2 F 11/18/19 15:53 Pulse 75 11/18/19 15:53 Resp 16 11/18/19 15:53 BP 144/87 11/18/19 15:53 Pulse Ox 98 11/18/19 15:53 Vital Signs Reviewed: Yes Respiratory Exam: Normal Cardiovascular Exam: Normal Musculoskeletal Exam: Other - minor erythema R distal toe, has 2 sutures intact (surgical procedure - SR in 1 week) no drainage, no streaking, no swelling Neurological Exam: Normal Neurological: Positive: Alert Psychological Exam: Normal Skin Exam: Other - minor erythema R distal toe, has 2 sutures intact (surgical procedure - SR in 1 week) no drainage Course/Dx - Differential Diagnoses - Skin Complaint Differential Diagnoses: Abscess, Cellulitis - Diagnoses Provider Diagnosis: Abscess or cellulitis of foot Discharge ED - Sign-Out/Discharge Documenting (check all that apply): Patient Departure All imaging exams completed and their final reports reviewed: No Studies - Discharge Plan Condition: Good Disposition: HOME Prescriptions: Sulfamethox/Trimethoprim DS* [Bactrim DS 800/160 TAB*] 1 tab PO BID #10 tab Patient Education Materials: Cellulitis (ED) Referrals: Lencho Ash MD [Primary Care Provider] - 2 Days (if no better, recheck blood pressure) Additional Instructions: continue Bactrim antibiotic as directed keep wound clean and dry follow-up surgeon as scheduled for suture removal - Billing Disposition and Condition Condition: GOOD Disposition: Home
== END 2019-11-18 16:30 | disposition home or self-care (01) ==
LOC: UCEAST 15:43
DX: L08.9 Local infection of the skin and subcutaneous tissue, unspecified (principal); Z91.09 Other allergy status, other than to drugs and biological substances
CPT/HCPCS: 99212; G0463

== ENCOUNTER 2019-11-22 14:00 | Emergency (ER) | payer MEDICARE, OTHER ==
--- NOTE | 2019-11-22 14:06 | UC ---
Lower Extremity/Ankle HPI - HPI Summary HPI Summary: Pt has come to for this issue x2 visits. 1.5 weeks ago, had piece of glass removed by surgeon from right foot. has been on bactrim since then for the infection. infection did not resolve, and redness seems to have worsened today. denies pain and her main concern is the redness in her foot w/ some mild swelling of R toe. has a f/u appt w/ surgeon in 2 days for removal of sutures. nothing makes it better/worse. - History of Current Complaint Chief Complaint: UCLowerExtremity Stated Complaint: foot SWELLING Time Seen by Provider: 11/22/19 14:05 Hx Obtained From: Patient - Allergies/Home Medications Allergies/Adverse Reactions: Allergies Allergy/AdvReac Type Severity Reaction Status Date / Time sulfamethoxazole Allergy Rash Verified 11/22/19 14:47 [From Bactrim] trimethoprim [From Bactrim] Allergy Rash Verified 11/22/19 14:47 SUN Allergy Severe Rash Uncoded 11/22/19 14:11 PMH/Surg Hx/FS Hx/Imm Hx Previously Healthy: Yes Neurological History: Other - chronic neuropathy in both feet - Surgical History Surgical History: Yes Surgery Procedure, Year, and Place: Partial hysterectomy. shoulder fx 6 weeks ago - Family History Known Family History: Negative: Diabetes - Social History Alcohol Use: Occasionally Substance Use Type: None Smoking Status (MU): Never Smoked Tobacco - Immunization History Most Recent Influenza Vaccination: none Most Recent Tetanus Shot: less then 10 yrs Review of Systems All Other Systems Reviewed And Are Negative: Yes Constitutional: Negative: Fever Skin: Positive: Other - redness on foot. ENT: Negative: Other - denies lip swelling Respiratory: Negative: Shortness Of Breath Motor: Negative: Weakness Neurovascular: Positive: Decreased Sensation - chronic per pt in both of her feet. Negative: Decreased Pulses Musculoskeletal: Positive: Edema - mild per pt in R toe s/p procedure. Negative : Arthralgia, Myalgia Neurological: Positive: Numbness - chronic per pt in both feet. Physical Exam Triage Information Reviewed: Yes Appearance: Well-Appearing, No Pain Distress Vital Signs Reviewed: Yes Eyes: Negative: Other: - no lid swelling ENT: Negative: Other - no lip swelling Neck: Positive: Supple Respiratory Exam: Normal Respiratory: Positive: No respiratory distress Cardiovascular Exam: Normal Cardiovascular: Positive: Pulses Normal - pedal bilat, Brisk Capillary Refill - toes bilat Musculoskeletal: Positive: ROM Intact - R toe/R ankle, Edema @ - minimal at site of procedure Neurological: Positive: Alert Skin: Positive: Other - SUTURE SITE HEALING WELL. petechia-like spots on lower extremities bilat extending into foot. both toes are erythematous bilat but R large toe is severely erythematous. NOntender throughout both feet. INCIDENTAL finding of rash on chest and worse on back, scattered macular erythema. Lower Extremity Course/Dx - Course Course Of Treatment: R toe redness which pt. felt was unchanged after 2 visits here at the UC and a visit at the Surgeons after removal of glass FB. On exam suture site healing well and she should go to f/u in 2 days. There was no pain by complaint or on exam. But upon exam we noticed a rash on chest and back that appeared to be allergic rxn to Bactrim so we stopped this med. there was no resp. involvement. We changed med to Keflex. Reviewed previous imaging and notes. Spoke w/ dr mo/surgeon aitchbone breaker and she suggested cont. antibx and f/u w/ surgeon's office. - Differential Dx/Diagnosis Differential Diagnosis/HQI/PQRI: Infection, Other Provider Diagnosis: Drug reaction, Rash, Erythema Discharge ED - Sign-Out/Discharge Documenting (check all that apply): Patient Departure All imaging exams completed and their final reports reviewed: No Studies - Discharge Plan Condition: Good Disposition: HOME Prescriptions: Cephalexin CAP* [Keflex CAP*] 500 mg PO TID 10 Days #30 cap Patient Education Materials: General Allergic Reaction (ED) Referrals: Lencho Ash MD [Primary Care Provider] - Additional Instructions: If you develop fever , shortness of breath please go to the emergency room. if the redness passes the marked area please make appt with the surgeon's office tomorrow. Otherwise keep your Nov 24 appt. PLEASE STOP TAKING BACTRIM. - Billing Disposition and Condition Condition: GOOD Disposition: Home - Attestation Statements Provider Attestation: This patient was not seen by me I was available for consult Chart reviewed NIGEL
[2019-11-22 14:11] VITALS: BP 103/73
[2019-11-22] MEDS ORDERED: Cephalexin CAP* 500 MG PO ONE (14:36)
== END 2019-11-22 15:00 | disposition home or self-care (01) ==
LOC: UCEAST 14:00
DX: L27.1 Localized skin eruption due to drugs and medicaments taken internally (principal); T36.8X5A Adverse effect of other systemic antibiotics, initial encounter; Y92.9 Unspecified place or not applicable; G62.9 Polyneuropathy, unspecified; Z88.2 Allergy status to sulfonamides
CPT/HCPCS: 99212; A9270-GY; G0463

== ENCOUNTER 2019-11-23 00:49 | Emergency (ER) | payer MEDICARE, OTHER ==
--- NOTE | 2019-11-23 01:47 | ED ---
Lower Extremity - HPI Summary HPI Summary: This patient is an 83 year old female presenting to [facility] with a chief complaint of infection in the right foot. [facility] She states she had a rash on her body from ABx but had them changed at [facility]. She rates the pain in her foot 7/10 in severity. She states she had a piece of glass surgically removed from the foot. She still has a diffuse rash from the Bactrim. She reports perceived fever. She denies taking anything for the fever. Temperature in ED is 100.4 F. She reports chills over the last 2 nights. - History of Current Complaint Chief Complaint: EDAllergicReaction Stated Complaint: INFECTION IN FOOT PER PT Time Seen by Provider: 11/23/19 01:34 Hx Obtained From: Patient Pain Intensity: 7 Pain Scale Used: 0-10 Numeric - Allergies/Home Medications Allergies/Adverse Reactions: Allergies Allergy/AdvReac Type Severity Reaction Status Date / Time sulfamethoxazole Allergy Rash Verified 11/22/19 14:47 [From Bactrim] trimethoprim [From Bactrim] Allergy Rash Verified 11/22/19 14:47 SUN Allergy Severe Rash Uncoded 11/22/19 14:11 PMH/Surg Hx/FS Hx/Imm Hx Endocrine/Hematology History: Denies: Hx Diabetes, Hx Thyroid Disease Cardiovascular History: Reports: Hx Hypertension - controlled by diet/weight loss Respiratory History: Denies: Hx Asthma, Hx Chronic Obstructive Pulmonary Disease (COPD) GI History: Denies: Hx Ulcer - Surgical History Surgery Procedure, Year, and Place: Partial hysterectomy. shoulder fx 6 weeks ago Infectious Disease History: No Infectious Disease History: Reports: Hx Hepatitis - HX HEP IN HER 20s Denies: Hx Human Immunodeficiency Virus (HIV), Traveled Outside the [place] in Last 30 Days - Family History Known Family History: Negative: Diabetes - Social History Alcohol Use: Occasionally Substance Use Type: Reports: None Smoking Status (MU): Never Smoked Tobacco Review of Systems Positive: Fever, Chills Positive: Other - Left foot pain/infection Positive: Rash All Other Systems Reviewed And Are Negative: Yes Physical Exam - Summary Physical Exam Summary: General:Elderly female. No acute distress. HEENT: Normocephalic, Atraumatic. Eyes: Conjuctiva normal, PERRL. Oropharynx: Clear, mucous membranes moist, (-) exudates. Neck: Soft, FROM, (-) lymphadenopathy, (-) thyromegaly, (-) JVD. Cardiovascular: Normal sinus rhythm, (-) murmur. Lungs: Clear to auscultation bilaterally (-) wheezes, (-) rales, (-) rhonchi. Abdomen: Soft, non-tender, non-distended, (-) organomegaly, normal bowel sounds. Back: (-) CVA tenderness Extremities: No edema. Skin: Warm, dry, Papular erythemetous rash diffuse over her entire body. Signifcant erythema, swelling, warmth, tenderness over her right great toe extending proximally up the foot and through all the other toes. Good pulses, good capillary refill. Neuro: Alert and oriented x3, no focal deficits. Psychiatric: Mood normal, affect normal. Triage Information Reviewed: Yes Vital Signs On Initial Exam: Initial Vitals Temp Pulse Resp BP Pulse Ox 100 F 99 20 164/83 97 11/23/19 00:51 11/23/19 00:51 11/23/19 00:51 11/23/19 00:51 11/23/19 00:51 Vital Signs Reviewed: Yes Procedures - Sedation Patient Received Moderate/Deep Sedation with Procedure: No Diagnostics - Vital Signs Vital Signs Temp Pulse Resp BP Pulse Ox 11/23/19 00:51 100 F 99 20 164/83 97 - Laboratory Result Diagrams: 11/23/19 02:33 11/23/19 02:33 Lab Statement: Any lab studies that have been ordered have been reviewed, and results considered in the medical decision making process. Lower Extremity Course/Dx - Course Course Of Treatment: 83 year old female presents from home with a worsening cellulitis. Patient states that she has had cellulitis on her right foot. She states they actually took a piece of glass out of there and it she didn't know was there. She was started on Bactrim. Patient developed a rash. Went back to urgent care yesterday and was taken off the Bactrim. Started on Keflex. Tonight the rash spread outside the lines that were drawn so patient return for evaluation. On physical exam distal right foot is very erythematous. Mildly swollen. Tender. Warm. Good pulses and capillary refill. Patient has erythematous macules over her entire body and hives. Workup demonstrated a normal white count and lactic acid. Mildly elevated temperature at 100 upon arrival. Patient given ibuprofen. Given IV Zosyn. temperature is lower. patient discharged to home, continue keflex. Follow-up with PCP. Follow up sooner for any worsening symptoms. - Diagnoses Provider Diagnoses: Cellulitis, Rash Discharge ED - Sign-Out/Discharge Documenting (check all that apply): Patient Departure - Discharge - Discharge Plan Condition: Stable Disposition: HOME Patient Education Materials: Cellulitis (ED) Referrals: Lencho Ash MD [Primary Care Provider] - Additional Instructions: Return to ED with new or worsening symptoms. - Billing Disposition and Condition Condition: STABLE Disposition: Home - Attestation Statements Document Initiated by Nicholasibcorie: Yes Documenting Scribe: Perry Osorio Provider For Whom Sandra is Documenting (Include Credential): Corazon Earl MD Scribe Attestation: Perry Wilkinson, scribed for Corazon Earl MD on 11/23/19 at 0350. Scribe Documentation Reviewed: Yes Provider Attestation: The documentation as recorded by the Perry guerra accurately reflects the service I personally performed and the decisions made by Corazon bates MD Status of Scribe Document: Viewed
[2019-11-23] MEDS ORDERED: NS 0.9% 1000 ML** 1,000 ML IV ONE (02:06)
[2019-11-23] MEDS ORDERED: Piperacillin/Tazobac ADVAN(*) 3.375 GM in NS 0.9% 100 ML* 100 ML IVPB ONE (02:07)
[2019-11-23] MEDS ORDERED: Ibuprofen TAB* 400 MG PO ONE (02:07)
[2019-11-23 02:44] LABS: ABS Eosinophils 0.2 10^3/ul (0-0.6); ABS Lymphocytes 0.8 10^3/ul (1.0-4.8); ABS Monocytes 0.1 10^3/ul (0-0.8); ABS Neutrophils 2.2 10^3/ul (1.5-7.7); Eosinophil % 7.3 %; Hematocrit 37 % (35-47); Hemoglobin 12.7 g/dL (12.0-16.0); Lymphocyte % 23.4 %; Mean Corpuscular HGB Conc 35 g/dL (31-36); Mean Corpuscular Hemoglobin 32 pg (27-31); Mean Corpuscular Volume 93 fL (80-97); Mean Platelet Volume 7.3 fL (7.4-10.4); Nucleated Red Blood Cells % 0.2; Platelet Count 156 10^3/uL (150-450); Red Blood Count 3.94 10^6 /uL (3.70-4.87); Red Cell Distribution Width 15 % (10-15); White Blood Count 3.3 10^3/uL (3.5-10.8)
[2019-11-23 02:49] LABS: INR 0.98 (0.82-1.09)
[2019-11-23 03:00] LABS: Albumin 4.1 g/dL (3.2-5.2); Albumin/Globulin Ratio 1.3 (1-3); BUN/Creatinine Ratio 21.9 (8-20); C Reactive Protein 36.53 mg/L (<8.01); Calcium 9.3 mg/dL (8.6-10.3); EGFR African American 55.2 (>60); EGFR Non-African American 45.6 (>60); Globulin 3.1 g/dL (2-4); Total Bilirubin 0.5 mg/dL (0.2-1.0); Total Protein 7.2 g/dL (6.4-8.9)
[2019-11-23 03:29] VITALS: BP 155/92
== END 2019-11-23 03:38 | disposition home or self-care (01) ==
LOC: ED 00:49
DX: L03.115 Cellulitis of right lower limb (principal); I10 Essential (primary) hypertension; Z90.710 Acquired absence of both cervix and uterus; Z88.1 Allergy status to other antibiotic agents; Z88.2 Allergy status to sulfonamides
CPT/HCPCS: 36415; 80053; 83605; 85025; 85610; 86140; 87040; 96365; 99282; A9270-GY; J2543